=== PATIENT | female | born 1980 | race Caucasian/White ===

== ENCOUNTER 2024-04-25 13:30 | Outpatient (RCR) | payer BC, SELFPAY | END 2024-04-25 19:00 | disposition home or self-care (01) | LOC: PT 13:30 | PROVIDERS: PCP Nurse Practitioner Primary Care; Referring Provider Physician Assistant; Visit Provider Physician Assistant | DX: R42 Dizziness and giddiness (principal) | CPT/HCPCS: 97110; 97161; 97530 ==